=== PATIENT | female | born 1985 | race Caucasian/White ===

== ENCOUNTER 2020-11-19 06:51 | Inpatient (IN) | payer OTHER ==
[2020-11-19] MEDS: Lactated Ringers 1,000 ML IV SCH ×3 (07:18→23:58)
[2020-11-19] MEDS ORDERED: CLINDAMYCIN-D5W 900 MG/50 ML*** 900 MG/50 ML BAG IV SCH (07:30)
[2020-11-19 08:40] LABS: ABO TYPING B; Antibody Screen NEGATIVE (NEGATIVE); RH TYPING POSITIVE
[2020-11-19] MEDS ORDERED: Versed 2 MG/2 ML Injection ONE (09:00)
[2020-11-19] MEDS ORDERED: DIPRIVAN 200 MG/20 ML IV ONE (09:00)
[2020-11-19] MEDS ORDERED: SUBLIMAZE 250 MCG/5 ML ONE (09:00)
[2020-11-19] MEDS ORDERED: Zemuron 100 MG/10 ML ONE ×2 (09:00→10:42)
[2020-11-19] MEDS ORDERED: Lactated Ringers 1,000 ML IV ONE (09:37)
[2020-11-19] MEDS ORDERED: Sensorcaine 0.25% 10 ML ONE (09:37)
[2020-11-19] MEDS ORDERED: Ephedrine Sulfate 50 MG/ML ONE (10:19)
[2020-11-19] MEDS ORDERED: Zofran 4 MG/2 ML VIAL ONE (11:31)
[2020-11-19] MEDS ORDERED: TORAdol 30 mg Injection ONE (11:31)
[2020-11-19] MEDS ORDERED: BRIDION 200MG/2ML IV ONE (11:34)
[2020-11-19] MEDS ORDERED: SUBLIMAZE 100 MCG/2 ML ONE (11:48)
[2020-11-19] MEDS ORDERED: Hydromorphone 1 mg/ml Injection ONE (11:48)
[2020-11-19] MEDS ORDERED: DILAUDID 1 MG/1ML PCA IV PRN (12:16)
[2020-11-19 13:09] LABS: Appearance CLEAR (CLEAR); Bilirubin NEGATIVE (NEGATIVE); Blood NEGATIVE Ery/ul (0-5); Glucose NEGATIVE (NEGATIVE); Ketones NEGATIVE (NEGATIVE); Leukocyte Esterase NEGATIVE (NEGATIVE); Mucus SLIGHT /HPF (NEGATIVE); Nitrite NEGATIVE (NEGATIVE); Protein,Urine Dip NEGATIVE (Negative); Specific Gravity 1.016 (1.005-1.025); Urobilinogen NEGATIVE mg/dL (0-1)
[2020-11-19] MEDS ORDERED: Zofran 4 MG/2 ML VIAL IV PRN (13:29)
[2020-11-19] MEDS ORDERED: TORAdol 30 mg Injection IV PRN (13:34)
[2020-11-19] MEDS: Mylicon 80MG PO SCH ×2 (14:09→22:13)
[2020-11-19] MEDS: Reglan 10 MG/2 ML IV SCH ×2 (14:10→22:13)
[2020-11-19] MEDS ORDERED: Lactated Ringers 500 ML IV ONE ×2 (16:13→19:56)
[2020-11-19] MEDS: CLINDAMYCIN-D5W 900 MG/50 ML*** 900 MG/50 ML BAG IV SCH ×2 (16:18→23:54)
[2020-11-19 18:09] LABS: Hematocrit 34.5 % (35-47); Hemoglobin 11.2 gm/dl (12.0-16.0); Mean Cell Volume 96.9 fl (78-100); Mean Corpuscular Hemoglobin 31.5 pg (26-32); Mean Corpuscular Hgb Concent. 32.5 g/dl (32-36); Mean Platelet Volume 9.3 fl (7.5-11.0); Platelet Count 188 K/mm3 (150-450); Red Blood Count 3.56 M/mm3 (4.1-5.4); White Blood Count 13.2 K/mm3 (4.0-10.5)
[2020-11-19] MEDS: PERCOCET TABLET 5/325MG PO PRN (19:44)
[2020-11-19] MEDS ORDERED: Colace 100 MG PO SCH (22:00)
[2020-11-20] MEDS: PERCOCET TABLET 5/325MG PO PRN (00:03)
[2020-11-20 05:10] LABS: Hematocrit 34.6 % (35-47); Hemoglobin 11.2 gm/dl (12.0-16.0); Mean Cell Volume 97.2 fl (78-100); Mean Corpuscular Hemoglobin 31.5 pg (26-32); Mean Corpuscular Hgb Concent. 32.4 g/dl (32-36); Mean Platelet Volume 9.5 fl (7.5-11.0); Platelet Count 190 K/mm3 (150-450); Red Blood Count 3.56 M/mm3 (4.1-5.4); Red Cell Distribution Width 13.2 % (11.5-14.0); White Blood Count 7.2 K/mm3 (4.0-10.5)
[2020-11-20 05:36] LABS: ALBUMIN 2.8 g/dL (3.5-5.0); ALKALINE PHOSPHATASE 30 U/L (38-126); ANION GAP 11.5 MEQ/L (5-15); BLOOD UREA NITROGEN 11 mg/dL (7-17); CHLORIDE 107 mmol/L (98-107); Calcium 8.1 mg/dL (8.4-10.2); Carbon Dioxide 22 mmol/L (22-30); Creatinine 1 0.75 mg/dL (0.52-1.04); EST GLOMERULAR FILTRATION RATE > 60.0 ML/MIN; Glucose 95 mg/dL (74-106); SGOT/AST 17 U/L (14-36); SGPT/ALT 11 U/L (0-35); SODIUM 136 mmol/L (137-145); Total Protein 4.9 g/dL (6.3-8.2)
[2020-11-20] MEDS ORDERED: PERCOCET TABLET 5/325MG PO PRN (07:05)
[2020-11-20 07:33] VITALS: BP 88/53; PULSE 91; O2SAT 97
[2020-11-20] MEDS: Reglan 10 MG/2 ML IV SCH (07:34)
[2020-11-20] MEDS: Mylicon 80MG PO SCH (07:34)
[2020-11-20] MEDS ORDERED: MOTRIN 600 MG PO PRN (07:41)
--- NOTE | 2020-11-20 07:47 | OP ---
SURGERY DATE/TIME: 11/19/2020 0951 PREOPERATIVE DIAGNOSIS: Chronic pelvic pain. POSTOPERATIVE DIAGNOSIS: Chronic pelvic pain with uterus being approximately 9 week size. PROCEDURES: 1) Laparoscopic supracervical hysterectomy. 2) Bilateral salpingectomy. SURGEON: Piero Wilcox D.O. SUPERVISOR NUCLEAR MEDICINE: Silvia Farley, photogrammetric technician. ANESTHESIA: General. ESTIMATED BLOOD LOSS: 50 cc. COMPLICATIONS: None. INDICATIONS: The risks, benefits, indications and alternatives of the procedure were reviewed with the patient prior to procedure. The patient understood the risk of infection, bleeding, bowel injury, bladder injury, ureteral injury, uterine perforation, pelvic infection, thromboembolic disorder as well as hernia associated with the surgery however desires to have this procedure as a possible means to alleviate her current medical condition. DESCRIPTION OF PROCEDURE AND FINDINGS: At this point the patient is taken to the operating room given general anesthesia, placed in supine position where she was prepped and draped in the usual sterile fashion. At this point a 1 cm infraumbilical incision was made with a scalpel and a 5 mm trocar and sleeve advanced through the incision where pneumoperitoneum was obtained with 4 liters of CO2 gas. An additional incision is made in the left middle quadrant region where a 1 mm incision was made where a 5 mm trocar and sleeve were advanced under direct visualization. An additional incision was made in the right middle quadrant region where a 5 mm incision was made and a 5 mm trocar was placed under direct visualization as well. There was an additional incision made 2 cm above the symphysis pubis where a 10 mm incision was made and a 10 mm trocar and sleeve were advanced under direct visualization. From this point visualization of the lower pelvic region appeared to be within normal limits. However the uterus appeared to be approximately 9 week size in dimension. From this point the LigaSure was used to place through the trocar site where the store assistant was used to retract the uterus to one side where the left utero-ovarian ligament was clamped, coagulated and cut taken down towards the round ligament where it to was clamped, coagulated, cut and taken down toward the uterine vasculature where it was dissected and the bladder was dissected off the lower uterine segment. From that point on the left side, the uterine vessels were identified and bipolar was used to coagulate on three contiguous regions followed by the LigaSure where it was clamped, coagulated and cut at that point. The same took place on the right side where the uterus was lifted away from the right side and the LigaSure was used to clamp, coagulate and cut the utero-ovarian ligament taking down to the round ligament towards the uterine vasculature where bipolar was used and the uterine vessels were identified clamped and coagulated in three contiguous regions followed by LigaSure where it was clamped, coagulated, cut and the bladder was then dissected off the lower uterine segment. From this point there was minimal bleeding that was noted. The ovaries appeared to be within normal limits and were not removed during the procedure. At this point the SupraLoop was introduced in the trocar site and upon placing the SupraLoop over the uterus down to the cervical-uterine junction, it was lassoed in and after the SupraLoop was used to amputate the uterus from its cervical stump and was done so with a setting of 50 on the bipolar. After complete excision and amputation of the uterus there was no bleeding that was noted from the cervical stump region. From this point the suprapubic incisional site was then extended to approximately 2 to 2.5 cm and the Narciso 0 retractor was placed in through the incision and the uterus was grasped with a trocar where it was lifted up to the incision and an extracorporeal C-Incision tissue extraction was performed as done so by Dr. Anselmo Pina from [facility]. The tissue extraction was done and was taken off in one piece and there was no bleeding that was noted. After removal the retractor was then removed and the incision closed with 0 Vicryl suture and the subcutaneous layer was closed with 2-0 Vicryl suture and the incision was closed with INSORB. From this point another look was taken through the laparoscopic where there was no bleeding that was noted in the pelvic region and irrigation was obtained and again there was bleeding that was noted. The bilateral fallopian tubes were excised with LigaSure and taken out without complication. From this point all instruments were removed from the patient's abdominal region and the remaining incisions were closed with 4-0 Monocryl suture. The patient was then taken out of anesthesia and was then taken to the recovery room in stable condition.
[2020-11-20] MEDS ORDERED: ENOXAPARIN SODIUM SQ SCH (08:00)
--- NOTE | 2020-11-20 08:17 | PCM.DS ---
Discharge Summary Date of Admission: 11/19/20 06:51 Admitting Physician: SERAFIN QUIÑONEZ DO Primary Care Provider: NO FAMILY DOCTOR Allergies Allergies Penicillins Allergy (Severe, Verified 11/19/20 07:16) [facility] Summary - Hospital Course Hospital Course: pt was admitted on november 19 for undergoing laparoscopic supracervical hysterectomy secondary to chronic pelvic pain and underwent procedure without complication. during postop period pt did well with stable h/h and was able to ambulate and tolerate diet. pt at this time stable for discharge and was advised to fu in office in 2 wks. incision c/d/intact. all questions answered to her satisfaction. pt was discharged home on clindamycin for 3 days and states did not need pain medication as she was taking ibuprofen prior to discharge. - Vitals & Intake/Output Vital Signs: Vital Signs Temperature 98.5 F 11/20/20 07:32 Pulse Rate 91 H 11/20/20 07:32 Respiratory Rate 18 11/20/20 08:00 Blood Pressure 88/53 11/20/20 07:32 O2 Sat by Pulse Oximetry 97 11/20/20 07:32 Intake & Output: Intake & Output 11/17/20 11/18/20 11/19/20 11/20/20 11:59 11:59 11:59 11:59 Intake Total 4698 Output Total 1800 Balance 2898 Weight 70.3 kg 70.3 kg - Lab Result Diagrams: 11/20/20 04:43 11/20/20 04:43 Lab Results-Last 24 Hrs: Lab Results-Last 24 Hours 11/19/20 11/19/20 11/19/20 Range/Units 07:25 10:02 18:10 WBC 13.2 H (4.0-10.5) K/mm3 RBC 3.56 L (4.1-5.4) M/mm3 Hgb 11.2 L D (12.0-16.0) gm/dl Hct 34.5 L (35-47) % MCV 96.9 (78-100) fl MCH 31.5 (26-32) pg MCHC 32.5 (32-36) g/dl RDW 13.0 (11.5-14.0) % Plt Count 188 (150-450) K/mm3 MPV 9.3 (7.5-11.0) fl Sodium (137-145) mmol/L Potassium (3.5-5.1) mmol/L Chloride (98-107) mmol/L Carbon Dioxide (22-30) mmol/L Anion Gap (5-15) MEQ/L BUN (7-17) mg/dL Creatinine (0.52-1.04) mg/dL Estimated GFR ML/MIN Glucose (74-106) mg/dL Calcium (8.4-10.2) mg/dL Total Bilirubin (0.2-1.3) mg/dL AST (14-36) U/L ALT (0-35) U/L Alkaline Phosphatase (38-126) U/L Serum Total Protein (6.3-8.2) g/dL Albumin (3.5-5.0) g/dL Urine Color YELLOW (YELLOW) Urine Appearance CLEAR (CLEAR) Urine pH 6.0 (5-6) Ur Specific [place] 1.016 (1.005-1.025) Urine Protein NEGATIVE (Negative) Urine Ketones NEGATIVE (NEGATIVE) Urine Blood NEGATIVE (0-5) [place] Urine Nitrite NEGATIVE (NEGATIVE) Urine Bilirubin NEGATIVE (NEGATIVE) Urine Urobilinogen NEGATIVE (0-1) mg/dL Ur Leukocyte Esterase NEGATIVE (NEGATIVE) Urine WBC (Auto) NONE (0-5) /HPF Urine RBC (Auto) NONE (0-2) /HPF U Epithel Cells (Auto) NONE (FEW) /HPF Urine Bacteria (Auto) NONE (NEGATIVE) /HPF Urine Mucus (Auto) SLIGHT (NEGATIVE) /HPF Urine Glucose NEGATIVE (NEGATIVE) mg/dL ABO Group B Rh Factor POSITIVE Antibody Screen NEGATIVE (NEGATIVE) 11/20/20 11/20/20 Range/Units 04:43 04:43 WBC 7.2 (4.0-10.5) K/mm3 RBC 3.56 L (4.1-5.4) M/mm3 Hgb 11.2 L (12.0-16.0) gm/dl Hct 34.6 L (35-47) % MCV 97.2 (78-100) fl MCH 31.5 (26-32) pg MCHC 32.4 (32-36) g/dl RDW 13.2 (11.5-14.0) % Plt Count 190 (150-450) K/mm3 MPV 9.5 (7.5-11.0) fl Sodium 136 L (137-145) mmol/L Potassium 4.0 (3.5-5.1) mmol/L Chloride 107 (98-107) mmol/L Carbon Dioxide 22 (22-30) mmol/L Anion Gap 11.5 (5-15) MEQ/L BUN 11 (7-17) mg/dL Creatinine 0.75 (0.52-1.04) mg/dL Estimated GFR > 60.0 ML/MIN Glucose 95 (74-106) mg/dL Calcium 8.1 L (8.4-10.2) mg/dL Total Bilirubin 0.30 (0.2-1.3) mg/dL AST 17 (14-36) U/L ALT 11 (0-35) U/L Alkaline Phosphatase 30 L (38-126) U/L Serum Total Protein 4.9 L (6.3-8.2) g/dL Albumin 2.8 L (3.5-5.0) g/dL Urine Color (YELLOW) Urine Appearance (CLEAR) Urine pH (5-6) Ur Specific [place] (1.005-1.025) Urine Protein (Negative) Urine Ketones (NEGATIVE) Urine Blood (0-5) [place] Urine Nitrite (NEGATIVE) Urine Bilirubin (NEGATIVE) Urine Urobilinogen (0-1) mg/dL Ur Leukocyte Esterase (NEGATIVE) Urine WBC (Auto) (0-5) /HPF Urine RBC (Auto) (0-2) /HPF U Epithel Cells (Auto) (FEW) /HPF Urine Bacteria (Auto) (NEGATIVE) /HPF Urine Mucus (Auto) (NEGATIVE) /HPF Urine Glucose (NEGATIVE) mg/dL ABO Group Rh Factor Antibody Screen (NEGATIVE) Micro Results-Entire Visit: Microbiology 11/19/20 10:02 Urine Culture - Preliminary Catherized NO GROWTH TO DATE - Procedures and Test Procedures and Tests throughout Hospitalization: Therapy Orders & Screens 11/19/20 12:41 Incentive Spirometry UD Comment: Diagnosis: chronic pelvic pain 11/19/20 13:37 Smoking Cessation Education ONCE Comment: Diagnosis: lap hysterectomy Smoking Status: Current every day smoker How long have you smoked: 20 years Have you smoked in the past 12 months: Yes Approximately how many cigarettes per day: 1/2 ppd Do you dip or chew tobacco: No Discharge Exam Wound Assessment: Skin/Wound Assessment Wound/Incision Assessment Start: 11/19/20 12 :58 Text: Status: Active Freq: Q4H Protocol: Document 11/20/20 07:00 ST (Rec: 11/20/20 07:27 ST [id number]) Wound/Incision Assessment Anterior Abdomen Wound Assessment Shift Assessment Wound Type Incision Dressing Status Dry & Intact Drainage Amount None Drainage Odor None/Absent General Appearance Well Approximated,Open to air, Clean/Dry Surrounding Tissue [place] - Discharge Discharge Date: 11/20/20 Disposition: Home, Self-Care Condition: Stable Prescriptions: No Action Esomeprazole Magnesium [Nexium 24Hr] 20 mg PO DAILY Follow up with: SERAFIN QUIÑONEZ DO [ACTIVE STAFF] - 2 weeks (should not lift anything heavy should not drive for a week may take shower but no bath for 2 wks no intercourse for 6 wks)
[2020-11-20] MEDS ORDERED: Protonix 40MG Tablet PO SCH (10:00)
[2020-11-20] MEDS ORDERED: ESOMEPRAZOLE MAGNESIUM 20 MG PO SCH (10:00)
== END 2020-11-20 09:14 | disposition home or self-care (01) | DRG 743 ==
LOC: MED SURG 06:51 → EDSTATUS 11:43
PROVIDERS: ADMIT Obstetrics & Gynecology; ATTEND Obstetrics & Gynecology
PROC: 0UT94ZL Resection of Uterus, Supracervical, Percutaneous Endoscopic Approach (ICD-10-PCS; principal; 2020-11-19)
PROC: 0UT74ZZ Resection of Bilateral Fallopian Tubes, Percutaneous Endoscopic Approach (ICD-10-PCS; 2020-11-19)
DX: N80.0 Endometriosis of uterus (principal); R10.2 Pelvic and perineal pain; D25.9 Leiomyoma of uterus, unspecified
CPT/HCPCS: 36415; 58542; 80053; 81001; 84703; 85027; 86850; 86900; 86901; 87086; 88307; J1170; J1650; J1885; J2250; J2405; J2704; J3010; A9270-GY